=== PATIENT | male | born 1955 | race African-American/Black ===

== ENCOUNTER 2023-05-05 21:10 | Inpatient (IN) | payer MEDICARE, MEDICAID ==
[~2023-05-05] VITALS: Ht 172.7 cm; Wt 49.9 kg
[~2023-05-05 21:10] MED LIST: IBUP-2029 PO
[2023-05-06] MEDS ORDERED: AMLODIPINE 5MG TABLET PO ONE
[2023-05-06] MEDS ORDERED: METOCLOPRAMIDE HCL 10MG/2ML VIAL IV ONE (00:15)
[2023-05-06] MEDS ORDERED: PANTOPRAZOLE SODIUM 40 MG/VIAL IV ONE (00:15)
[2023-05-06] MEDS ORDERED: HYDRALAZINE 20MG/ML VIAL IV ONE (00:15)
[2023-05-06] MEDS ORDERED: SODIUM CHLORIDE 0.9% 1,000 ML IV ONE (00:30)
[2023-05-06 01:36] LABS: CHLORIDE 103 mEq/L (98-107)
[2023-05-06 01:38] LABS: BASOPHILS % 0.9 % (0.0-2.0); EOSINOPHILS % 1.4 % (0.0-5.0); HEMATOCRIT. 41.6 % (42.0-52.0); HEMOGLOBIN. 13.6 g/dL (14.0-18.0); LYMPHOCYTES % 22.9 % (20.0-50.0); MEAN CORPUSCULAR HEMOGLOBIN 27.8 pg (28.0-32.0); MEAN PLATELET VOLUME 7.5 fl (7.4-10.4); MONOCYTES % 7.9 % (2.0-8.0); NEUTROPHILS % 66.9 % (40.0-76.0); PLATELET 499 x1000/uL (130-400); RED CELL DISTRIBUTION WIDTH 15.6 % (11.6-14.6)
[2023-05-06] MEDS ORDERED: ASPIRIN 325MG EC TABLET PO ONE (05:30)
[2023-05-06] MEDS ORDERED: ACETAMINOPHEN 325MG TABLET PO ONE (05:30)
[2023-05-06] MEDS ORDERED: ASPIRIN 325MG EC TABLET PO NR (07:45)
[2023-05-06] MEDS: ACETAMINOPHEN 325MG TABLET PO NR ×4 (07:50→11:20)
[2023-05-06] MEDS: NITROGLYCERIN 0.1MG/HR PATCH TOP SCH ×2 (08:16→09:22)
[2023-05-06] MEDS ORDERED: ACETAMINOPHEN 325MG TABLET PO PRN (09:45)
[2023-05-06] MEDS ORDERED: GUAIFENESIN 200MG/10ML SUGAR FREE UDC PO PRN (09:45)
[2023-05-06] MEDS ORDERED: HYDROCODONE/ACETAMINOPHEN 5/325MG TABLET PO PRN (09:45)
[2023-05-06] MEDS ORDERED: METOPROLOL TARTRATE 25MG TABLET PO SCH (09:45)
[2023-05-06] MEDS ORDERED: TRAMADOL 50MG TABLET PO PRN (09:45)
[2023-05-06] MEDS: AMLODIPINE 5MG TABLET PO SCH (09:45)
[2023-05-06] MEDS ORDERED: DOCUSATE SODIUM 100MG CAPSULE PO PRN (09:45)
[2023-05-06] MEDS ORDERED: ONDANSETRON HCL 4MG/2ML INJ IV PRN (09:45)
[2023-05-06] MEDS ORDERED: CLONIDINE 0.1MG TABLET PO PRN (09:45)
[2023-05-06] MEDS ORDERED: POTASSIUM CHLORIDE 20MEQ TABLET SR PO NR (10:00)
[2023-05-06] MEDS ORDERED: NALOXONE HCL 0.4MG/ML VIAL IV PRN (10:00)
[2023-05-06] MEDS: ENOXAPARIN 40MG/0.4ML SYR SUBCUT SCH (10:00)
[2023-05-06] MEDS ORDERED: METOPROLOL TARTRATE 5MG/5ML VIAL IV PRN (13:30)
[2023-05-06] MEDS: HYDRALAZINE HCL 25MG TABLET PO SCH ×2 (14:27→21:34)
[2023-05-06 16:00] VITALS: BP 158/110; PULSE 70; RESP 18; TEMP 98.9
[2023-05-06] MEDS ORDERED: NITROGLYCERIN 0.4MG TABLET SL SL PRN (16:30)
[2023-05-06] MEDS ORDERED: OMEPRAZOLE 20MG CAPSULE EXTENDED RELEASE PO NR (16:30)
[2023-05-06] MEDS: METOPROLOL TARTRATE 25MG TABLET PO SCH (17:00)
[2023-05-06 20:47] VITALS: BP 150/100; PULSE 86; RESP 20; TEMP 98.6
[2023-05-07] VITALS (8 sets, daily range): BP systolic 1–150; BP diastolic 54–91; PULSE 58–85; RESP 16–20; TEMP 96.6–98.4; O2SAT 100
[2023-05-07 06:29] LABS: BASOPHILS % 0.7 % (0.0-2.0); EOSINOPHILS % 2.9 % (0.0-5.0); HEMATOCRIT. 40.9 % (42.0-52.0); HEMOGLOBIN. 13.6 g/dL (14.0-18.0); LYMPHOCYTES % 29.3 % (20.0-50.0); MEAN CORPUSCULAR HEMOGLOBIN 28.4 pg (28.0-32.0); MEAN CORPUSCULAR VOLUME 85.5 fL (80.0-94.0); MEAN PLATELET VOLUME 8.1 fl (7.4-10.4); MONOCYTES % 7.5 % (2.0-8.0); NEUTROPHILS % 59.6 % (40.0-76.0); PLATELET 429 x1000/uL (130-400); RED BLOOD CELL COUNT 4.78 mill/uL (4.7-6.1); RED CELL DISTRIBUTION WIDTH 15.3 % (11.6-14.6)
[2023-05-07 06:30] LABS: CHLORIDE 105 mEq/L (98-107)
[2023-05-07] MEDS: HYDRALAZINE HCL 25MG TABLET PO SCH ×2 (06:32→16:19)
[2023-05-07 06:38] LABS: HDL CHOLESTEROL 77 mg/dL (40-59); LDL CHOLESTEROL 83 mg/dL (5-100)
[2023-05-07] MEDS ORDERED: IODIXANOL 320MG/ML 100 ML BOTTLE IV ONE (07:58)
[2023-05-07] MEDS ORDERED: LIDOCAINE HCL/PF 1% 10 MG/ML 5ML VIAL ONE (07:59)
[2023-05-07] MEDS ORDERED: HEPARIN 1000 UNITS/ML 10ML ONE (07:59)
[2023-05-07] MEDS ORDERED: VERAPAMIL HCL 2.5 MG/1 ML 2ML VIAL IV ONE (07:59)
[2023-05-07] MEDS ORDERED: DIPHENHYDRAMINE 50MG/ML VIAL ONE (07:59)
[2023-05-07] MEDS ORDERED: NICARDIPINE 100MCG/ML 10ML VIAL (CATH LAB) IV ONE (08:00)
[2023-05-07] MEDS ORDERED: NITROGLYCERIN 50MCG/ML 10ML VIAL (CATH LAB) IV ONE (08:00)
[2023-05-07] MEDS ORDERED: FENTANYL CITRATE/PF 50MCG/ML 2ML VIAL ONE (08:23)
[2023-05-07] MEDS ORDERED: MIDAZOLAM HCL 2 MG/2 ML VIAL ONE (08:23)
[2023-05-07] MEDS ORDERED: OMEPRAZOLE 20MG CAPSULE EXTENDED RELEASE PO SCH (09:00)
[2023-05-07] MEDS: AMLODIPINE 5MG TABLET PO SCH (09:00)
[2023-05-07] MEDS: METOPROLOL TARTRATE 25MG TABLET PO SCH ×2 (09:00→17:00)
[2023-05-07] MEDS ORDERED: ACETAMINOPHEN 325MG TABLET PO PRN (09:45)
[2023-05-07] MEDS ORDERED: ATROPINE SULFATE 1MG/10ML SYR IV PRN (09:45)
[2023-05-07] MEDS ORDERED: SODIUM CHLORIDE 0.45% 250 ML IV ONE (09:45)
[2023-05-07] MEDS: ENOXAPARIN 40MG/0.4ML SYR SUBCUT SCH (10:00)
[2023-05-07] MEDS: ISOSORBIDE MONONITRATE 30MG TABLET SR 24HR PO SCH ×2 (10:46→10:49)
[2023-05-08] MEDS ORDERED: OMEPRAZOLE 20MG CAPSULE EXTENDED RELEASE PO SCH (07:40)
== END 2023-05-07 18:00 | disposition home or self-care (01) | DRG 287 ==
LOC: ER 21:10 → 7WST 05-06 05:25
PROVIDERS: ADMIT Hospitalist; ATTEND Hospitalist
PROC: B211YZZ Fluoroscopy of Multiple Coronary Arteries using Other Contrast (ICD-10-PCS; principal; 2023-05-07)
PROC: 4A023N7 Measurement of Cardiac Sampling and Pressure, Left Heart, Percutaneous Approach (ICD-10-PCS; 2023-05-07)
PROC: B34HZZZ Ultrasonography of Right Upper Extremity Arteries (ICD-10-PCS; 2023-05-07)
DX: I25.110 Atherosclerotic heart disease of native coronary artery with unstable angina pectoris (principal); I16.1 Hypertensive emergency; I10 Essential (primary) hypertension; Y90.9 Presence of alcohol in blood, level not specified; F10.10 Alcohol abuse, uncomplicated; Z91.148 Patient's other noncompliance with medication regimen for other reason; Z82.49 Family history of ischemic heart disease and other diseases of the circulatory system; Z88.0 Allergy status to penicillin; Z79.1 Long term (current) use of non-steroidal anti-inflammatories (NSAID); Z79.899 Other long term (current) drug therapy
CPT/HCPCS: 36415; 71045; 80053; 80061; 83880; 84484; 85025; 85347; 93005; 93306; 93970; 99285; C9113; J0360; J1200; J1644; J1650; J2250; J2765; J3010; J3490; J7030; Q9967